=== PATIENT | male | born 1995 | race African-American/Black ===

== ENCOUNTER 2020-09-09 14:12 | Outpatient (CLI) | payer OTHER ==
--- NOTE | 2020-09-09 14:59 | ULT ---
LEFT BREAST ULTRASOUND: HISTORY: Palpable abnormality 12 o'clock position left breast. FINDINGS: Real-time imaging of the area of concern shows a 3 x 22 mm slightly hypoechoic area within the subcut aneous fat directly beneath the skin surface. This is not cystic and may represent some sequelae of a previous infection and scarring. It has no concerning features. IMPRESSION: Nonspecific oblong-shaped hypoechoic area in the subcutaneous fat. Overall a very benign appearance. POS: OFF
== END 2020-09-09 14:13 | disposition home or self-care (01) ==
LOC: BICMAMMO 14:12
PROVIDERS: ATTEND Family Medicine
DX: N60.02 Solitary cyst of left breast (principal); R92.8 Other abnormal and inconclusive findings on diagnostic imaging of breast